=== PATIENT | male | born 1980 | race Caucasian/White ===

== ENCOUNTER 2018-02-17 20:14 | Observation (INO) | payer OTHER ==
--- NOTE | 2018-02-17 20:38 | PDOC ---
History of Present Illness - General History Source: Patient Exam Limitations: No Limitations - History of Present Illness Initial Comments: 02/17/18 21:23 The patient is a 37 year old male with no significant PMH who presents to the emergency department with chronic back pain and left leg pain. The patient reports that he has been experiencing a shooting pain down his left leg for 3 weeks. He states that his left sided pain is worse in his buttocks area and radiates to the heel of his foot. He reports that he also experienced some numbness in his left leg. He reports taking oxycodone, flexeril and anti inflammatory 1 hour prior to arrival to the ED. The patient states that he has been experiencing problems with his bowels secondary to his back pain: he states that it is hard for him to push. Patient reports he has an upcoming appointment with his doctor (Dr Verdugo) in 2 days (MondayFebruary 19) for an epidural spine shot.He denies any chest pain, shortness of breath, headache and dizziness. He denies fever, chills, nausea, vomit, diarrhea, constipation or urinary symptoms. The patient denies any other complaints. <Suman Pena - Last Filed: 02/17/18 21:50> <Adelaida Stovall - Last Filed: 02/18/18 02:20> - General Chief Complaint: Back Pain Stated Complaint: BACK PAIN Time Seen by Provider: 02/17/18 20:17 Past History <Suman Pena - Last Filed: 02/17/18 21:50> - Past Medical History COPD: No Other medical history: BACK PAIN - Immunization History Immunization Up to Date: No - Suicide/Smoking/Psychosocial Hx Smoking History: Never smoked Have you smoked in the past 12 months: No Hx Alcohol Use: Yes (NOT RECENTLY) Drug/Substance Use Hx: No Substance Use Type: None <Adelaida Stovall - Last Filed: 02/18/18 02:20> - Past Medical History Allergies/Adverse Reactions: Allergies Allergy/AdvReac Type Severity Reaction Status Date / Time No Known Allergies Allergy Verified 02/17/18 20:24 Home Medications: Ambulatory Orders Oxycodone HCl/Acetaminophen [Percocet 5-325 mg Tablet -] 1 - 2 tab PO Q6H PRN # 10 tab 02/15/14 Cyclobenzaprine HCl [Flexeril -] 10 mg PO TID PRN 02/17/18 Diclofenac Sodium 50 mg PO BID PRN 02/17/18 Review of Systems - Review of Systems Able to Perform ROS?: Yes Comments:: 02/17/18 21:23 GENERAL/CONSTITUTIONAL: No fever or chills. No weakness. HEAD, EYES, EARS, NOSE AND THROAT: No change in vision. No ear pain or discharge. No sore throat. CARDIOVASCULAR: No chest pain or shortness of breath. RESPIRATORY: No cough, wheezing, or hemoptysis. GASTROINTESTINAL: No nausea, vomiting, diarrhea or constipation. GENITOURINARY: No dysuria, frequency, or change in urination. MUSCULOSKELETAL:(+)back pain, left leg pain. No neck pain. No swelling. SKIN: No rash NEUROLOGIC: No headache, vertigo, loss of consciousness, or change in strength/ sensation. ENDOCRINE: No increased thirst. No abnormal weight change. HEMATOLOGIC/LYMPHATIC: No anemia, easy bleeding, or history of blood clots. ALLERGIC/IMMUNOLOGIC: No hives or skin allergy <Suman Pena - Last Filed: 02/17/18 21:50> *Physical Exam - Vital Signs Last Vital Signs Temp Pulse Resp BP Pulse Ox 98.0 F 98 H 18 142/100 100 02/17/18 20:16 02/17/18 20:16 02/17/18 20:16 02/17/18 20:16 02/17/18 20:16 - Physical Exam Comments: 02/17/18 21:23 GENERAL: Awake, alert, and fully oriented, in no acute distress HEAD: No signs of trauma EYES: PERRLA, EOMI, sclera anicteric, conjunctiva clear ENT: Auricles normal inspection, hearing grossly normal, nares patent, oropharynx clear without exudates. Moist mucosa NECK: Normal ROM, supple, no lymphadenopathy, JVD, or masses LUNGS: Breath sounds equal, clear to auscultation bilaterally. No wheezes, and no crackles HEART: Regular rate and rhythm, normal S1 and S2, no murmurs, rubs or gallops ABDOMEN: Soft, nontender, normoactive bowel sounds. No guarding, no rebound. No masses EXTREMITIES: (+)pain with straight left leg raise, no pain with straight right leg raise. No masses or edema or tenderness of calf or popliteal regions. Normal range of motion, no edema. No clubbing or cyanosis. No cords, erythema, or tenderness BACK:(+) Mild tenderness of midline lower spine , marked tenderness of left buttocks at sciatic notch. NEUROLOGICAL: Cranial nerves II through XII grossly intact. Normal speech, gait deferred. Motor and sensory intact SKIN: Warm, Dry, normal turgor, no rashes or lesions noted. <Suman Pena - Last Filed: 02/17/18 21:50> - Vital Signs Last Vital Signs Temp Pulse Resp BP Pulse Ox 98.0 F 98 H 18 142/100 100 02/17/18 20:16 02/17/18 20:16 02/17/18 20:16 02/17/18 20:16 02/17/18 20:16 <Adelaida Stovall - Last Filed: 02/18/18 02:20> ED Treatment Course - Medications Given in the ED: ED Medications Discontinued Medications Generic Name Dose Route Start Last Admin Trade Name Freq PRN Reason Stop Dose Admin Ketorolac Tromethamine 30 mg 02/17/18 20:50 02/17/18 20:55 Toradol Injection - IVPUSH 02/17/18 20:51 30 mg ONCE ONE Administration <Suman Pena - Last Filed: 02/17/18 21:50> - LABORATORY CBC & Chemistry Diagram: 02/18/18 00:20 02/18/18 00:02 <Adelaida Stovall - Last Filed: 02/18/18 02:20> Progress Note - Progress Note Progress Note: Documentation has been prepared under my direction and personally reviewed by me in its entirety. I attest that this documented accurately reflects all work, treatment, procedures and medical decision making performed by me. <Adelaida Stovall - Last Filed: 02/18/18 02:20> Medical Decision Making - Medical Decision Making 02/17/18 23:46 As noted above, this 37-year-old man without significant past medical history presents by ambulance with 3 week history of lower back pain and left-sided sciatica pain. The patient has previous history of back pain with exacerbation 3 weeks ago of unclear etiology. He was seen by Dr. Verdugo and treated with analgesics/nonsteroidal anti-inflammatory and antispasmodic medication. He is scheduled for epidural injection on Austyn, Kiki 4. He presents with persistent severe pain, especially in the left buttock (sciatic notch) area despite taking medications as prescribed. Patient states that he is unable to ambulate even a few steps without significant pain. He denies groin numbness/ urinary or bowel movement changes (he has had recent difficulty with bowel movements a cause of worsening of pain while bearing down). Exam as noted. Despite 30 mg Toradol IV, 1 mg of Dilaudid IV 2 doses, Valium 5 mg IV, patient still has significant, severe left buttock/leg pain preventing him from ambulating. He failed attempt at ambulation secondary to severe pain. Dr. Bhaena covering Dr.Oh monahan: Message left with service for call back. [facility] service contacted: Case discussed with . Patient will be admitted under observation status for pain control <Adelaida Stovall - Last Filed: 02/18/18 02:20> *DC/Admit/Observation/Transfer - Attestations Scribe Attestion: 02/17/18 21:24 Documentation prepared by Suman Pena, acting as chief medical technologist for Adelaida Stovall MD. <Suman Pena - Last Filed: 02/17/18 21:50> - Discharge Dispostion Decision to Admit order: Yes <Adelaida Stovall - Last Filed: 02/18/18 02:20> Diagnosis at time of Disposition: Intractable low back pain
[2018-02-17] MEDS ORDERED: KETOROLAC TROMETHAMINE 30 MG/1 ML VIAL IVPUSH ONE (20:50)
[2018-02-17] MEDS ORDERED: KETOROLAC TROMETHAMINE 30 MG/1 ML VIAL ONE (20:50)
[2018-02-17] MEDS ORDERED: HYDROmorphone HCL CARPU-JECT 1 MG/1 ML DISP.SYRIN IVPUSH ONE ×2 (21:23→23:13)
[2018-02-17] MEDS ORDERED: HYDROmorphone HCL CARPU-JECT 1 MG/1 ML DISP.SYRIN ONE ×2 (21:26→23:22)
[2018-02-17] MEDS ORDERED: diazePAM CARPU-JECT 10 MG/2 ML DISP.SYRIN IVPUSH ONE (22:25)
[2018-02-18] MEDS ORDERED: METHOCARBAMOL 500 MG TABLET PO ONE (00:04)
[2018-02-18] MEDS ORDERED: ACETAMINOPHEN 325 MG TABLET (FP) PO PRN (00:04)
[2018-02-18 00:28] LABS: HEMOGLOBIN 14.9 GM/dL (11.7-16.9); MCH 27.4 pg (25.7-33.7); MCHC 34.8 g/dl (32.0-35.9); MEAN CELL VOLUME 78.8 fl (80-96); MEAN PLT VOLUME 7.8 fl (7.5-11.1); PLATELET COUNT 236 K/MM3 (134-434); RBC 5.45 M/mm3 (4.00-5.60); WHITE BLOOD COUNT 9.4 K/mm3 (4.0-10.0)
[2018-02-18 00:46] VITALS: BMI 34.1
[2018-02-18 00:55] LABS: ALBUMIN 3.7 g/dl (3.4-5.0); ALK PHOS 38 U/L (45-117); ANION GAP 12 (8-16); BILIRUBIN,TOTAL 0.7 mg/dL (0.2-1.0); BLOOD UREA NITROGEN 15 mg/dL (7-18); CALCIUM 8.8 mg/dL (8.5-10.1); CHLORIDE 103 mmol/L (98-107); CO2 24 mmol/L (21-32); CREATININE 0.8 mg/dL (0.7-1.3); GLUCOSE,RANDOM 79 mg/dL (74-106); POTASSIUM 3.7 mmol/L (3.5-5.1); SGOT/AST 19 U/L (15-37); SGPT/ALT 33 U/L (12-78); SODIUM 139 mmol/L (136-145); TOT PROT 6.3 g/dl (6.4-8.2)
[2018-02-18 01:26] LABS: HEMATOCRIT 43.7 % (35.4-49); HEMOGLOBIN 15.1 GM/dl (11.7-16.9); RBC 5.51 M/mm3 (4.00-5.60); WHITE BLOOD COUNT 9.6 K/mm3 (4.0-10.8)
[2018-02-18 01:27] LABS: LYMPH % 17.4 % (8-40); MCH 27.4 pg (25.7-33.7); MCHC 34.5 g/dl (32.0-35.9); MEAN CELL VOLUME 79.4 fl (80-96); NEUT % 78.4 % (42.8-82.8); PLATELET COUNT 243 K/MM3 (134-434); RDW 13.2 % (11.9-15.9)
[2018-02-18 01:28] LABS: BASO % 0.2 % (0-2.0); EOS % 0.6 % (0-4.5)
[2018-02-18] MEDS ORDERED: morphine CARPU-JECT 2 MG/1 ML DISP.SYRIN IVPUSH PRN (08:07)
[2018-02-18 09:36] LABS: ANION GAP 8 (8-16); BLOOD UREA NITROGEN 15 mg/dl (7-18); CALCIUM 9.3 mg/dl (8.4-10.2); CHLORIDE 102 mmol/L (98-107); CO2 26 mmol/L (22-28); CREATININE 0.8 mg/dl (0.6-1.3); GLUCOSE,RANDOM 79 mg/dl (74-106); POTASSIUM 3.6 mmol/L (3.5-5.1); SODIUM 136 mmol/L (136-145)
[2018-02-18] MEDS: HEPARIN NA (PORCINE) 5,000 UNITS/ML 1ML VIAL SQ SCH ×2 (10:05→22:08)
[2018-02-18] MEDS ORDERED: HYDROmorphone HCL CARPU-JECT 1 MG/1 ML DISP.SYRIN IVPB PRN (13:50)
[2018-02-18] MEDS ORDERED: DOCUSATE SODIUM 100 MG CAPSULE (FP) PO PRN (13:50)
[2018-02-18] MEDS ORDERED: MAGNESIUM HYDROX 2400MG/30ML ORAL SUSPENSION 30 ML CUP PO PRN (13:51)
[2018-02-18] MEDS ORDERED: CYCLOBENZAPRINE HCL 5 MG TABLET PO SCH (14:00)
--- NOTE | 2018-02-18 14:05 | HP ---
CHIEF COMPLAINT: Intractable back pain PCP:Todd HISTORY OF PRESENT ILLNESS: This is a 37 year old male with significant history of chronic back pain. The patient reports that he has been experiencing a shooting pain down his left leg for 3 weeks,pain is worse in his buttocks area and radiates to the heel of his foot for 3 weeks. Pain started 3 weeks ago when he missed the step stepping out of the truck, denies any fall. Pt had an out pt MRI done revealed herniated disc L4-S1.Pt reports seen by pain management Dr. Verdugo,who ordered oxycodone, flexeril and anti inflammatory meds but no relief and also completed two courses of steroid. Pt scheduled to get a steroid injection by Dr. Lorenzana tomorrow. Now pt presents to the ER c/o worsening left buttock pain radiates to left leg, unable to ambulate, denies numbness but reports left heel tingling sensation, c/o constipation, denies B/B incontinence, abdominal pain ,N/V/D, cp, sob,palpitations, BYRD,dizziness or urinary symptoms. Out pt MRI : L3-4 broad disc bulge and central protruding disc herniation, L4-5 - central and left sided disc herniation, mild central canal stenosis, L5 -S1 left sided extruded disc herniation with inferior migration causes compression thecal sac and descending left S1 root. Recent Travel:No PAST MEDICAL HISTORY: PAST SURGICAL HISTORY: Social History: Smoking: None Alcohol: Social drinking, occasional use of beer Drugs: None Family History: None Allergies No Known Allergies Allergy (Verified 02/17/18 20:24) HOME MEDICATIONS: Home Medications Medication Instructions Recorded Oxycodone HCl/Acetaminophen 1 - 2 tab PO Q6H PRN #10 tab 02/15/14 [Percocet 5-325 mg Tablet -] Cyclobenzaprine HCl [Flexeril -] 10 mg PO TID PRN 02/17/18 Diclofenac Sodium 50 mg PO BID PRN 02/17/18 REVIEW OF SYSTEMS CONSTITUTIONAL: Absent: fever, chills, diaphoresis, generalized weakness, malaise, loss of appetite, weight change HEENT: Absent: rhinorrhea, nasal congestion, throat pain, throat swelling, difficulty swallowing, mouth swelling, ear pain, eye pain, visual changes CARDIOVASCULAR: Absent: chest pain, syncope, palpitations, irregular heart rate, lightheadedness , peripheral edema RESPIRATORY: Absent: cough, shortness of breath, dyspnea with exertion, orthopnea, wheezing, stridor, hemoptysis GASTROINTESTINAL: Absent: abdominal pain, abdominal distension, nausea, vomiting, diarrhea, constipation, melena, hematochezia GENITOURINARY: Absent: dysuria, frequency, urgency, hesitancy, hematuria, flank pain, genital pain MUSCULOSKELETAL: left buttocks pain Absent: myalgia, arthralgia, joint swelling, back pain, neck pain SKIN: Absent: rash, itching, pallor HEMATOLOGIC/IMMUNOLOGIC: Absent: easy bleeding, easy bruising, lymphadenopathy, frequent infections ENDOCRINE: Absent: unexplained weight gain, unexplained weight loss, heat intolerance, cold intolerance NEUROLOGIC: Absent: headache, focal weakness or paresthesias, dizziness, unsteady gait, seizure, mental status changes, bladder or bowel incontinence PSYCHIATRIC: Absent: anxiety, depression, suicidal or homicidal ideation, hallucinations. PHYSICAL EXAMINATION Vital Signs - 24 hr 02/17/18 02/17/18 02/18/18 20:16 23:32 00:07 Temperature 98.0 F 98.5 F Pulse Rate 98 H 82 Pulse Rate [ 84 Left] Respiratory 18 18 17 Rate Blood Pressure 142/100 147/86 Blood Pressure 119/78 [Right] O2 Sat by Pulse 100 97 97 Oximetry (%) 02/18/18 02/18/18 04:02 06:25 Temperature 97.8 F Pulse Rate 84 Pulse Rate [ Left] Respiratory 18 Rate Blood Pressure 131/79 Blood Pressure [Right] O2 Sat by Pulse 100 Oximetry (%) GENERAL: Awake, alert, and fully oriented, in no acute distress. HEAD: Normal with no signs of trauma. EYES: Pupils equal, round and reactive to light, extraocular movements intact, sclera anicteric, conjunctiva clear. No lid lag. EARS, NOSE, THROAT: Ears normal, nares patent, oropharynx clear without exudates. Moist mucous membranes. NECK: Normal range of motion, supple without lymphadenopathy, JVD, or masses. LUNGS: Breath sounds equal, clear to auscultation bilaterally. No wheezes, and no crackles. No accessory muscle use. HEART: Regular rate and rhythm, normal S1 and S2 without murmur, rub or gallop. ABDOMEN: Soft, nontender, not distended, normoactive bowel sounds, no guarding, no rebound, no masses. No hepatomegaly or splenomegaly. MUSCULOSKELETAL: Normal range of motion at all joints. No bony deformities or tenderness. No CVA tenderness.Left buttocks pain/tenderness UPPER EXTREMITIES: 2+ pulses, warm, well-perfused. No cyanosis. No clubbing. No peripheral edema. LOWER EXTREMITIES: 2+ pulses, warm, well-perfused. No calf tenderness. No peripheral edema. NEUROLOGICAL: Cranial nerves II-XII intact. Normal speech. Normal gait. PSYCHIATRIC: Cooperative. Good eye contact. Appropriate mood and affect. SKIN: Warm, dry, normal turgor, no rashes or lesions noted, normal capillary refill. Laboratory Results - last 24 hr 02/18/18 02/18/18 02/18/18 00:02 00:02 00:20 WBC 9.6 D 9.4 RBC 5.51 5.45 Hgb 15.1 14.9 Hct 43.7 43.0 MCV 79.4 L 78.8 L MCH 27.4 27.4 MCHC 34.5 34.8 RDW 13.2 13.0 Plt Count 243 236 MPV 8.0 7.8 Neutrophils % 78.4 D Lymphocytes % 17.4 D Monocytes % 7.0 Eosinophils % 0.6 Basophils % 0.2 Sodium 139 Potassium 3.7 Chloride 103 Carbon Dioxide 24 Anion Gap 12 BUN 15 Creatinine 0.8 Creat Clearance w eGFR > 60 Random Glucose 79 Calcium 8.8 Total Bilirubin 0.7 AST 19 ALT 33 Alkaline Phosphatase 38 L Total Protein 6.3 L Albumin 3.7 02/18/18 07:00 WBC RBC Hgb Hct MCV MCH MCHC RDW Plt Count MPV Neutrophils % Lymphocytes % Monocytes % Eosinophils % Basophils % Sodium 136 Potassium 3.6 Chloride 102 Carbon Dioxide 26 Anion Gap 8 BUN 15 D Creatinine 0.8 Creat Clearance w eGFR Random Glucose 79 D Calcium 9.3 Total Bilirubin AST ALT Alkaline Phosphatase Total Protein Albumin ASSESSMENT/PLAN: This is a 37 year old male with significant history of chronic back pain, who presented to the Er c/o worsening left buttock pain radiates to left leg, denies numbness but reports left heel tingling sensation. * Intractable back pain likely due to L4-S1 herniation - MRI reviewed - L4-S1 herniation -follows by ortho Dr. Verdugo, scheduled to have steroid injection for tomorrow -pain consult by Dr. Lorenzana -pain management -PT eval * Constipation - laxatives * VTE prophylaxis : Heparin sq * F/E/N: regular diet Visit type - Emergency Visit Emergency Visit: Yes ED Registration Date: 02/18/18 Care time: The patient presented to the Emergency Department on the above date and was hospitalized for further evaluation of their emergent condition. - New Patient This patient is new to me today: Yes Date on this admission: 02/18/18 - Critical Care Critical Care patient: No Hospitalist Screening - Colonoscopy Questionnaire Colonoscopy Questionnaire: Colonoscopy Questionnaire - Patient: 50 - 75 years old and never had a screening colonoscopy: No History of colon or rectal polyps, or CA: No History of IBD, Crohn's disease or UC: No History of abdominal radiation therapy as a child: No - Relative: 1 with colon or rectal CA, or polyps at age 60 or younger: No Colon or rectal CA diagnosed at age 45 or younger: No Multiple relatives with colon or rectal CA: No - Outcome: Screening Result: Negative Screen
[2018-02-18] MEDS ORDERED: HYDROmorphone HCL CARPU-JECT 2 MG/1 ML DISP.SYRIN ONE (14:22)
[2018-02-18] MEDS ORDERED: predniSONE 20 MG TABLET (UD) PO ONE (14:45)
[2018-02-18] MEDS: POLYETHYLENE GLYCOL 3350 119 GM BTL PO SCH (15:23)
[2018-02-18] MEDS: GABAPENTIN 100 MG CAPSULE (FP) PO SCH ×2 (15:24→22:08)
[2018-02-18] MEDS: HYDROmorphone HCL CARPU-JECT 2 MG/1 ML DISP.SYRIN IVPB PRN ×2 (18:06→22:08)
[2018-02-18] MEDS: CYCLOBENZAPRINE HCL 10 MG TABLET (FP) PO PRN (18:07)
[2018-02-19] MEDS: CYCLOBENZAPRINE HCL 10 MG TABLET (FP) PO PRN ×2 (02:01→21:40)
[2018-02-19] MEDS: HYDROmorphone HCL CARPU-JECT 2 MG/1 ML DISP.SYRIN IVPB PRN (02:01)
--- NOTE | 2018-02-19 07:37 | PN ---
Physical Exam: SUBJECTIVE: Patient seen and examined, patient reports pain to left buttock radiating downward patient denies any saddle anesthesia patient denies any changes about bladder patterns, the patient ambulated a few steps with a walker and physical therapist patient declined to walk any further secondary to pain. OBJECTIVE:Gallito is a 37-year-old male with no significant past mental history. Patient was admitted from the emergency department for intractable lower back pain Vital Signs Period Temp Pulse Resp BP Sys/Osborne Pulse Ox Last 24 Hr 97.8 F-98.5 F 74-88 17-18 132-143/76-95 99-99 GENERAL: The patient is awake, alert, and fully oriented, in no acute distress. HEAD: Normal with no signs of trauma. EYES: PERRL, extraocular movements intact, sclera anicteric, conjunctiva clear. No ptosis. ENT: Ears normal, nares patent, oropharynx clear without exudates, moist mucous membranes. NECK: Trachea midline, full range of motion, supple. LUNGS: Breath sounds equal, clear to auscultation bilaterally, no wheezes, no crackles, no accessory muscle use. HEART: Regular rate and rhythm, S1, S2 without murmur, rub or gallop. ABDOMEN: Soft, nontender, nondistended, normoactive bowel sounds, no guarding, no rebound, no hepatosplenomegaly, no masses. EXTREMITIES: 2+ pulses, warm, well-perfused, no edema. MS: positive SLRto the left lower extremity at 45, point tenderness noted to the left sciatic notch. NEUROLOGICAL: Cranial nerves II through XII grossly intact. Normal speech, gait not observed. PSYCH: Normal mood, normal affect. SKIN: Warm, dry, normal turgor, no rashes or lesions noted Laboratory Results - last 24 hr 02/18/18 07:00 Sodium 136 Potassium 3.6 Chloride 102 Carbon Dioxide 26 Anion Gap 8 BUN 15 D Creatinine 0.8 Random Glucose 79 D Calcium 9.3 Active Medications Generic Name Dose Route Start Last Admin Trade Name Freq PRN Reason Stop Dose Admin Cyclobenzaprine HCl 10 mg 02/18/18 13:48 02/19/18 02:01 Flexeril - PO 10 mg TID PRN Administration BACK PAIN Docusate Sodium 100 mg 02/18/18 13:50 02/18/18 18:06 Colace - PO 100 mg BID PRN Administration CONSTIPATION Gabapentin 200 mg 02/18/18 14:45 02/18/18 22:08 Neurontin - PO 200 mg BID OLIVER Administration Heparin Sodium (Porcine) 5,000 unit 02/18/18 10:00 02/18/18 22:08 Heparin - SQ 5,000 unit BID OLIVER Administration Hydromorphone HCl 0.5 mg 02/18/18 14:47 02/19/18 02:01 Dilaudid Injection - IVPB 0.5 mg Q4H PRN Administration PAIN LEVEL 7 - 10 Magnesium Hydroxide 30 ml 02/18/18 13:51 Milk Of Magnesia - PO PRN PRN CONSTIPATION Oxycodone/Acetaminophen 2 combo 02/18/18 13:57 02/19/18 06:20 Percocet 5/325 - PO 2 combo Q6H PRN Administration PAIN LEVEL 4 - 6 Polyethylene Glycol 17 gm 02/18/18 14:00 02/18/18 15:23 Miralax (For Daily Use) - PO 17 grams DAILY OLIVER Administration Imaging Outpatient MRI : L3-4 broad disc bulge and central protruding disc herniation, L4-5- central and left sided disc herniation, mild central canal stenosis, L5 - S1 left sided extruded disc herniation with inferior migration causes compression thecal sac and descending left S1 root. ASSESSMENT/PLAN: 1) MS Intractable back pain - likely secondary to lumbar disc herniation L4-S1, physical therapist attempted to ambulate patient today patient is declining to ambulate secondary to the pain, appreciated input of pain management Dr. Boss. - Dr Verdugo consulted and following - continue prednisone taper, Percocet, Neurontin, Flexeril, and Dilaudid 2) GI Constipation - laxatives * VTE prophylaxis : Heparin sq * F/E/N: regular diet Visit type - Emergency Visit Emergency Visit: Yes ED Registration Date: 02/18/18 Care time: The patient presented to the Emergency Department on the above date and was hospitalized for further evaluation of their emergent condition. - New Patient This patient is new to me today: Yes Date on this admission: 02/19/18 - Critical Care Critical Care patient: No - Discharge Referral Referred to [facility] No
[2018-02-19] MEDS ORDERED: HYDROmorphone HCL CARPU-JECT 2 MG/1 ML DISP.SYRIN IVPB PRN (08:48)
[2018-02-19] MEDS: HYDROmorphone HCL 0.5 MG/0.5 ML SYRINGE IVPB PRN ×2 (09:16→15:35)
[2018-02-19] MEDS: GABAPENTIN 100 MG CAPSULE (FP) PO SCH ×2 (09:16→21:39)
[2018-02-19] MEDS: HEPARIN NA (PORCINE) 5,000 UNITS/ML 1ML VIAL SQ SCH ×2 (09:17→21:39)
[2018-02-19] MEDS: POLYETHYLENE GLYCOL 3350 119 GM BTL PO SCH (09:24)
[2018-02-19] MEDS ORDERED: predniSONE 20 MG TABLET (UD) PO ONE (14:15)
[2018-02-19] MEDS: PANTOPRAZOLE 40 MG TABLET (FP) PO SCH (20:02)
[2018-02-19 20:28] LABS: URINE APPEARANCE Clear; URINE BILIRUBIN Negative (NEGATIVE); URINE BLOOD Negative (NEGATIVE); URINE COLOR YELLOW; URINE GLUCOSE (UA) Negative (NEGATIVE); URINE KETONE 1+ (NEGATIVE); URINE LEUK ESTERASE Negative (NEGATIVE); URINE NITRITE Negative (NEGATIVE); URINE PROTEIN Negative (NEGATIVE); URINE UROBILINOGEN 0.2 (0.2-1.0)
--- NOTE | 2018-02-20 06:44 | CONSULT ---
Consult Consult Specialty:: pain medicine Referred by:: jose c Reason for Consultation:: back pain - History of Present Illness Chief Complaint: back pain History of Present Illness: 37 year old male with significant history of chronic back pain. The patient reports that he has been experiencing a shooting pain down his left leg for 3 weeks,pain is worse in his buttocks area and radiates to the heel of his foot for 3 weeks. Pain started 3 weeks ago when he missed the step stepping out of the truck, denies any fall. Pt had an out pt MRI done revealed herniated disc L4-S1.Pt reports seen by pain management Dr. Verdugo,who ordered oxycodone, flexeril and anti inflammatory meds but no relief and also completed two courses of steroid. Pt scheduled to get a steroid injection by Dr. Boss tomorrow. Now pt presents to the ER c/o worsening left buttock pain radiates to left leg, unable to ambulate, denies numbness but reports left heel tingling sensation, c/o constipation, denies B/B incontinence, abdominal pain ,N/V/D, cp, sob,palpitations, BYRD,dizziness or urinary symptoms. Out pt MRI : L3-4 broad disc bulge and central protruding disc herniation, L4-5 - central and left sided disc herniation, mild central canal stenosis, L5 -S1 left sided extruded disc herniation with inferior migration causes compression thecal sac and descending left S1 root. Currently he reports continued severe pain in his back and leg despite on numerous pain meds. He reports difficulty to walk or stand. PAST MEDICAL HISTORY: PAST SURGICAL HISTORY: Social History: Smoking: None Alcohol: Social drinking, occasional use of beer Drugs: None - Alcohol/Substance Use Hx Alcohol Use: Yes (NOT RECENTLY) - Smoking History Smoking history: Never smoked Have you smoked in the past 12 months: No Home Medications - Allergies Allergies/Adverse Reactions: Allergies Allergy/AdvReac Type Severity Reaction Status Date / Time No Known Allergies Allergy Verified 02/17/18 20:24 - Home Medications Home Medications: Ambulatory Orders Oxycodone HCl/Acetaminophen [Percocet 5-325 mg Tablet -] 1 - 2 tab PO Q6H PRN # 10 tab 02/15/14 Cyclobenzaprine HCl [Flexeril -] 10 mg PO TID PRN 02/17/18 Diclofenac Sodium 50 mg PO BID PRN 02/17/18 Physical Exam Vital Signs: Vital Signs Temperature 97.6 F 02/20/18 06:36 Pulse Rate 81 02/20/18 06:36 Respiratory Rate 18 02/20/18 06:36 Blood Pressure 145/81 02/20/18 06:36 O2 Sat by Pulse Oximetry (%) 98 02/20/18 06:36 Musculoskeletal: Yes: Back Pain (severe pain in back and left leg positive SLR on left at 20 deg) Labs: CBC, BMP 02/18/18 00:20 02/18/18 07:00 Assessment/Plan Lumbar radiculopathy secondary to large disc extrusion at L5S1 1. The patient can trial an epidural steroid injection. I will try to perform it first thing in the morning on monday if the OR will allow me. Otherwise the patient may need to see me as an outpatient. 2. Can continue current regimen with gabapentin, muscle relaxants and opioids prn 3. Will need to hold heparin- last dose this morning if OR confirmed for tomorrow 4. If no relief in a few days after the DERRELL the patient most likely will need spine surgery. call with any questions cell [phone] off [phone]
[2018-02-20 08:56] LABS: INR 1.24 (0.82-1.09); PROTHROMBIN TIME (PATIENT) 13.8 SEC (10.2-13.0)
[2018-02-20 08:58] LABS: ALBUMIN 4.2 g/dl (3.5-5.0); ALK PHOS 36 U/L (32-92); ANION GAP 6 (8-16); BILIRUBIN,TOTAL 0.9 mg/dl (0.2-1.0); BLOOD UREA NITROGEN 11 mg/dl (7-18); CALCIUM 9.7 mg/dl (8.4-10.2); CHLORIDE 103 mmol/L (98-107); CO2 27 mmol/L (22-28); CREATININE 0.8 mg/dl (0.6-1.3); GLUCOSE,RANDOM 109 mg/dl (74-106); MAGNESIUM 1.9 mg/dL (1.8-2.4); PHOSPHOROUS 4.2 mg/dl (2.5-4.6); POTASSIUM 4.5 mmol/L (3.5-5.1); SGOT/AST 25 U/L (10-42); SGPT/ALT 46 U/L (10-40); SODIUM 136 mmol/L (136-145); TOT PROT 6.7 g/dl (6.4-8.3)
[2018-02-20 09:03] LABS: BASO % 0.1 % (0-2.0); EOS % 0.1 % (0-4.5); HEMATOCRIT 48.1 % (35.4-49); HEMOGLOBIN 16.7 GM/dl (11.7-16.9); LYMPH % 15.5 % (8-40); MCHC 34.7 g/dl (32.0-35.9); MEAN CELL VOLUME 80.7 fl (80-96); MEAN PLT VOLUME 7.8 fl (7.5-11.1); MONO % 5.9 % (3.8-10.2); NEUT % 78.4 % (42.8-82.8); PLATELET COUNT 273 K/MM3 (134-434); RBC 5.96 M/mm3 (4.00-5.60); RDW 11.7 % (11.9-15.9); WHITE BLOOD COUNT 7.7 K/mm3 (4.0-10.8)
[2018-02-20] MEDS: POLYETHYLENE GLYCOL 3350 119 GM BTL PO SCH (10:25)
[2018-02-20] MEDS: GABAPENTIN 100 MG CAPSULE (FP) PO SCH ×2 (10:25→21:21)
[2018-02-20] MEDS: HEPARIN NA (PORCINE) 5,000 UNITS/ML 1ML VIAL SQ SCH (10:25)
[2018-02-20] MEDS: PANTOPRAZOLE 40 MG TABLET (FP) PO SCH (10:25)
[2018-02-20] MEDS: HYDROmorphone HCL 0.5 MG/0.5 ML SYRINGE IVPB PRN (10:42)
--- NOTE | 2018-02-20 13:21 | PN ---
Physical Exam: SUBJECTIVE: Patient seen and examined, reports ongoing back pain, pending OR tommorow OBJECTIVE: patient is a 37-year-old male with no significant past mental history. Patient was admitted from the emergency department for intractable lower back pain Vital Signs Period Temp Pulse Resp BP Sys/Osborne Pulse Ox Last 24 Hr 97.6 F-99.2 F 78-92 16-19 125-145/71-81 96-98 GENERAL: The patient is awake, alert, and fully oriented, in no acute distress. HEAD: Normal with no signs of trauma. EYES: PERRL, extraocular movements intact, sclera anicteric, conjunctiva clear. No ptosis. ENT: Ears normal, nares patent, oropharynx clear without exudates, moist mucous membranes. NECK: Trachea midline, full range of motion, supple. LUNGS: Breath sounds equal, clear to auscultation bilaterally, no wheezes, no crackles, no accessory muscle use. HEART: Regular rate and rhythm, S1, S2 without murmur, rub or gallop. ABDOMEN: Soft, nontender, nondistended, normoactive bowel sounds, no guarding, no rebound, no hepatosplenomegaly, no masses. EXTREMITIES: 2+ pulses, warm, well-perfused, no edema. MS: positive SLRto the left lower extremity at 45, point tenderness noted to the left sciatic notch. NEUROLOGICAL: Cranial nerves II through XII grossly intact. Normal speech, gait not observed. PSYCH: Normal mood, normal affect. SKIN: Warm, dry, normal turgor, no rashes or lesions noted Laboratory Results - last 24 hr 02/19/18 02/20/18 02/20/18 20:10 08:16 08:16 WBC 7.7 RBC 5.96 H Hgb 16.7 D Hct 48.1 MCV 80.7 MCH 28.0 MCHC 34.7 RDW 11.7 L D Plt Count 273 MPV 7.8 Absolute Neuts (auto) 6.0 Neutrophils % 78.4 Lymphocytes % 15.5 Monocytes % 5.9 Eosinophils % 0.1 D Basophils % 0.1 PT with INR 13.8 H INR 1.24 H Sodium Potassium Chloride Carbon Dioxide Anion Gap BUN Creatinine Creat Clearance w eGFR Random Glucose Calcium Phosphorus Magnesium Total Bilirubin AST ALT Alkaline Phosphatase Total Protein Albumin Urine Color Yellow Urine Appearance Clear Urine pH 5.0 Ur Specific Pep 1.010 Urine Protein Negative Urine Glucose (UA) Negative Urine Ketones 1+ H Urine Blood Negative Urine Nitrite Negative Urine Bilirubin Negative Urine Urobilinogen 0.2 Ur Leukocyte Esterase Negative 02/20/18 08:16 WBC RBC Hgb Hct MCV MCH MCHC RDW Plt Count MPV Absolute Neuts (auto) Neutrophils % Lymphocytes % Monocytes % Eosinophils % Basophils % PT with INR INR Sodium 136 Potassium 4.5 D Chloride 103 Carbon Dioxide 27 Anion Gap 6 L BUN 11 D Creatinine 0.8 Creat Clearance w eGFR > 60 Random Glucose 109 H D Calcium 9.7 Phosphorus 4.2 Magnesium 1.9 Total Bilirubin 0.9 AST 25 D ALT 46 H D Alkaline Phosphatase 36 Total Protein 6.7 Albumin 4.2 Urine Color Urine Appearance Urine pH Ur Specific Pep Urine Protein Urine Glucose (UA) Urine Ketones Urine Blood Urine Nitrite Urine Bilirubin Urine Urobilinogen Ur Leukocyte Esterase Active Medications Generic Name Dose Route Start Last Admin Trade Name Freq PRN Reason Stop Dose Admin Cyclobenzaprine HCl 10 mg 02/18/18 13:48 02/19/18 21:40 Flexeril - PO 10 mg TID PRN Administration BACK PAIN Docusate Sodium 100 mg 02/18/18 13:50 02/18/18 18:06 Colace - PO 100 mg BID PRN Administration CONSTIPATION Gabapentin 200 mg 02/18/18 14:45 02/20/18 10:25 Neurontin - PO 200 mg BID OLIVER Administration Heparin Sodium (Porcine) 5,000 unit 02/18/18 10:00 02/20/18 10:25 Heparin - SQ 5,000 unit BID OLIVER Administration Hydromorphone HCl 0.5 mg 02/19/18 08:56 02/20/18 10:42 Dilaudid IVPB 0.5 mg Q4H PRN Administration PAIN LEVEL 7 - 10 Magnesium Hydroxide 30 ml 02/18/18 13:51 Milk Of Magnesia - PO PRN PRN CONSTIPATION Oxycodone/Acetaminophen 2 combo 02/18/18 13:57 02/20/18 07:07 Percocet 5/325 - PO 2 combo Q6H PRN Administration PAIN LEVEL 4 - 6 Pantoprazole Sodium 40 mg 02/19/18 15:30 02/20/18 10:25 Protonix - PO 40 mg DAILY OLIVER Administration Polyethylene Glycol 17 gm 02/18/18 14:00 02/20/18 10:25 Miralax (For Daily Use) - PO 17 grams DAILY OLIVER Administration Imaging Outpatient MRI : L3-4 broad disc bulge and central protruding disc herniation, L4-5- central and left sided disc herniation, mild central canal stenosis, L5 - S1 left sided extruded disc herniation with inferior migration causes compression thecal sac and descending left S1 root. ASSESSMENT/PLAN: 1) MS Intractable back pain - pending OR tomm at 7 AM for epidural - Dr Verdugo consulted and following - continue prednisone taper, Percocet, Neurontin, Flexeril, and Dilaudid 2) GI Constipation - laxatives * VTE prophylaxis : Heparin sq * F/E/N: regular diet nothing by mouth after midnight Visit type - Emergency Visit Emergency Visit: Yes ED Registration Date: 02/18/18 Care time: The patient presented to the Emergency Department on the above date and was hospitalized for further evaluation of their emergent condition. - New Patient This patient is new to me today: No - Critical Care Critical Care patient: No - Discharge Referral Referred to [facility] Med P.C.: No
[2018-02-20] MEDS ORDERED: predniSONE 20 MG TABLET (UD) PO ONE (14:00)
[2018-02-20] MEDS: CYCLOBENZAPRINE HCL 10 MG TABLET (FP) PO PRN (22:40)
[2018-02-21] MEDS ORDERED: DEXTROSE 5%-NORMAL SALINE 1,000 ML IV SCH
[2018-02-21] MEDS ORDERED: TRIAMCINOLONE ACET 40MG/1ML VIAL ONE (07:18)
[2018-02-21] MEDS ORDERED: BUPIVACAINE HCL/PF 2.5 MG/ML - 30 ML VIAL IJ ONE (07:18)
[2018-02-21] MEDS ORDERED: MIDAZOLAM HCL 2 MG/2 ML SINGLE DOSE VIAL ONE ×2 (07:29→07:41)
[2018-02-21] MEDS: HYDROmorphone HCL 0.5 MG/0.5 ML SYRINGE IVPB PRN (08:10)
[2018-02-21] MEDS ORDERED: HYDROmorphone HCL 0.5 MG/0.5 ML SYRINGE ONE (08:12)
--- NOTE | 2018-02-21 08:38 | PROC ---
Procedure Note Procedure: HOLD HEPARIN FOR 24hrs OPERATIVE REPORT Surgeon: Mark Boss MD Preoperative Diagnosis: Lumbar radiculopathy Postoperative Diagnosis: Same Anesthesia: IVCS Procedure: Lumbar Epidural steroid injection l5s1 Level Assessment: The patient presents to the [facility] today with the same complaints as previously noted. The condition remains unchanged. The procedure was explained to the patient. The risks and benefits were explained including but not limited to bleeding, infection, nerve injury, headaches, and worsening of pain. All questions have been answered and informed consent granted. Technique: The patient was placed in the prone position. A pillow was placed under the abdomen to lessen lumbar lordosis. The patient was prepped and draped in sterile fashion. Under fluoroscopy, an AP view was obtained of the lumbar spine and end plates of the levels above were aligned. Through a 3cc 1% lidocaine wheal, 3.5" 20G Touhy needle was advanced using a gun barrel view towards the epidural space via a translaminar approach. A loss of resistance technique to air was utilized. After negative aspiration of blood or CSF, 2 cc of Omnipaque contrast was injected under fluoroscopy to confirm needle placement.. Epidurogram: The contrast Omnipaque 240 was injected that evenly spread from level L5S1 level with posterior-anterior dye spread bilaterally at levels of l5s1. There appeared to be a moderate degree foraminal stenosis and with disc protrusion at the level of l5s1. The intervertebral disc height at the level of l5s1 was slightly less than normal and intervertebral disc height at the level of l5s1 was well maintained. The neural foramen appeared to be patent. Conclusion: Good epidural dye containment from l5s1 with intervertebral disc protrusion at the level ofl5s1, maintaining less than normal intervertebral disc height at level l5s1. foraminalstenosis noted at the level of L4 through S1. Hard copies of the images are on file.. Then 80mg Kenalog with 3cc PFNS was injected into the epidural space. A total of 2 cc of 0.25% Bupivicaine was injected as needle removed. The patient was hemodynamically stable, and neuromuscularly intact. The patient remained alert and responsive throughout the procedure. The patient tolerated the procedure well without complication. The patient was observed in the recovery room and then was discharged to the floor in stable condition. Instructions were given to the patient for follow up. Mark Boss M.D. Board Certified [employer].
[2018-02-21] MEDS: PANTOPRAZOLE 40 MG TABLET (FP) PO SCH (10:11)
[2018-02-21] MEDS: GABAPENTIN 100 MG CAPSULE (FP) PO SCH (10:11)
[2018-02-21] MEDS: POLYETHYLENE GLYCOL 3350 119 GM BTL PO SCH (10:12)
--- NOTE | 2018-02-21 13:45 | DS ---
Physical Exam: SUBJECTIVE: Patient seen and examined, Patient is status post lumbar steroid injection. Reports feeling relief ambulated at bedside with the assistance of walker. OBJECTIVE:This is a 37 year old male with significant history of chronic back pain. The patient reports that he has been experiencing a shooting pain down his left leg for 3 weeks,pain is worse in his buttocks area and radiates to the heel of his foot for 3 weeks. Pain started 3 weeks ago when he missed the step stepping out of the truck, denies any fall. Pt had an out pt MRI done revealed herniated disc L4-S1.Pt reports seen by pain management Dr. Verdugo,who ordered oxycodone, flexeril and anti inflammatory meds but no relief and also completed two courses of steroid. Pt scheduled to get a steroid injection by Dr. Lorenzana tomorrow. Now pt presents to the ER c/o worsening left buttock pain radiates to left leg, unable to ambulate, denies numbness but reports left heel tingling sensation, c/o constipation, denies B/B incontinence, abdominal pain ,N/V/D, cp, sob,palpitations, BYRD,dizziness or urinary symptoms. Out pt MRI : L3-4 broad disc bulge and central protruding disc herniation, L4-5 - central and left sided disc herniation, mild central canal stenosis, L5 -S1 left sided extruded disc herniation with inferior migration causes compression thecal sac and descending left S1 root. Vital Signs Period Temp Pulse Resp BP Sys/Osborne Pulse Ox Last 24 Hr 97.7 F-98.8 F 71-90 16-20 122-144/80-96 96-100 PHYSICAL EXAM GENERAL: The patient is awake, alert, and fully oriented, in no acute distress. HEAD: Normal with no signs of trauma. EYES: PERRL, extraocular movements intact, sclera anicteric, conjunctiva clear. ENT: Ears normal, nares patent, oropharynx clear without exudates, moist mucous membranes. NECK: Trachea midline, full range of motion, supple. LUNGS: Breath sounds equal, clear to auscultation bilaterally, no wheezes, no crackles, no accessory muscle use. HEART: Regular rate and rhythm, S1, S2 without murmur, rub or gallop. ABDOMEN: Soft, nontender, nondistended, normoactive bowel sounds, no guarding, no rebound, no hepatosplenomegaly, no masses. EXTREMITIES: 2+ pulses, warm, well-perfused, no edema. NEUROLOGICAL: Cranial nerves II through XII grossly intact. Normal speech, gait not observed. PSYCH: Normal mood, normal affect. SKIN: Warm, dry, normal turgor, no rashes or lesions noted. LABS CBC WBC 7.7 K/mm3 (4.0-10.8) 02/20/18 08:16 RBC 5.96 M/mm3 (4.00-5.60) H 02/20/18 08:16 Hgb 16.7 GM/dl (11.7-16.9) D 02/20/18 08:16 Hct 48.1 % (35.4-49) 02/20/18 08:16 MCV 80.7 fl (80-96) 02/20/18 08:16 MCH 28.0 pg (25.7-33.7) 02/20/18 08:16 MCHC 34.7 g/dl (32.0-35.9) 02/20/18 08:16 RDW 11.7 % (11.9-15.9) L D 02/20/18 08:16 Plt Count 273 K/MM3 (134-434) 02/20/18 08:16 MPV 7.8 fl (7.5-11.1) 02/20/18 08:16 Absolute Neuts (auto) 6.0 # 02/20/18 08:16 Neutrophils % 78.4 % (42.8-82.8) 02/20/18 08:16 Lymphocytes % 15.5 % (8-40) 02/20/18 08:16 Monocytes % 5.9 % (3.8-10.2) 02/20/18 08:16 Eosinophils % 0.1 % (0-4.5) D 02/20/18 08:16 Basophils % 0.1 % (0-2.0) 02/20/18 08:16 CMP Sodium 136 mmol/L (136-145) 02/20/18 08:16 Potassium 4.5 mmol/L (3.5-5.1) D 02/20/18 08:16 Chloride 103 mmol/L (98-107) 02/20/18 08:16 Carbon Dioxide 27 mmol/L (22-28) 02/20/18 08:16 Anion Gap 6 (8-16) L 02/20/18 08:16 BUN 11 mg/dl (7-18) D 02/20/18 08:16 Creatinine 0.8 mg/dl (0.6-1.3) 02/20/18 08:16 Creat Clearance w eGFR > 60 (>60) 02/20/18 08:16 Random Glucose 109 mg/dl (74-106) H D 02/20/18 08:16 Calcium 9.7 mg/dl (8.4-10.2) 02/20/18 08:16 Phosphorus 4.2 mg/dl (2.5-4.6) 02/20/18 08:16 Magnesium 1.9 mg/dL (1.8-2.4) 02/20/18 08:16 Total Bilirubin 0.9 mg/dl (0.2-1.0) 02/20/18 08:16 AST 25 U/L (10-42) D 02/20/18 08:16 ALT 46 U/L (10-40) H D 02/20/18 08:16 Alkaline Phosphatase 36 U/L (32-92) 02/20/18 08:16 Total Protein 6.7 g/dl (6.4-8.3) 02/20/18 08:16 Albumin 4.2 g/dl (3.5-5.0) 02/20/18 08:16 HOSPITAL COURSE: 1) Intractable back pain, patient was evaluated by pain management physician Dr. Kenyon Dyson, epidural steroid injection was placed on February 21, 2018. patient ambulated with physical therapy, recommends rolling walker. Pain was managed with narcotic and nonnarcotic medications. PLAN - discharge home with VNS - strict follow-up with pain management, Dr Boss within 1 week - Return precautions reviewed I numbness to groin inability to urinate or move bowels patient must return to the emergency department patient verbalizes understanding Date of Admission:02/18/18 Date of Discharge: 02/21/18 Minutes to complete discharge: 45 Discharge Summary Reason For Visit: INTRACTABLE LOW BACK PAIN Current Active Problems Intractable low back pain (Acute) Condition: Improved - Instructions Diet, Activity, Other Instructions: continue high fiber diet Please ambulate frequently throughout the day Continue Tylenol for minimal pain and oxycodone for severe pain Flexeril as needed for muscle spasms Please follow up with pain management Dr Boss within 1 week If P worsens or if any numbness develops to groin or you have any changes to bowel or bladder patterns please return to emergency department Referrals: Mark Boss MD [Staff Physician] - 1 Week Ortega Brooks MD [Staff Physician] - 3 Weeks Tyrone Verdugo MD [Primary Care Provider] - Lake Le MD [Staff Physician] - 3 Weeks Disposition: VNS/HOME HEALTH CARE - Home Medications Comprehensive Discharge Medication List: Ambulatory Orders Oxycodone HCl/Acetaminophen [Percocet 5-325 mg Tablet -] 1 - 2 tab PO Q6H PRN # 10 tab 02/15/14 Cyclobenzaprine HCl [Flexeril -] 10 mg PO TID PRN 02/17/18 Diclofenac Sodium 50 mg PO BID PRN 02/17/18 This patient is new to me today: No Emergency Visit: Yes ED Registration Date: 02/18/18 Care time: The patient presented to the Emergency Department on the above date and was hospitalized for further evaluation of their emergent condition. Critical Care patient: No - Discharge Referral Referred to [facility] No
[2018-02-21 14:16] VITALS: BP 126/72; PULSE 80; TEMP 98.6
== END 2018-02-21 16:10 | disposition home health service (06) ==
LOC: FER 20:14 → FM/S 02-18 00:07
PROVIDERS: ADMIT Internal Medicine; ATTEND Nurse Practitioner Family
PROC: 3E0R33Z Introduction of Anti-inflammatory into Spinal Canal, Percutaneous Approach (ICD-10-PCS; principal; 2018-02-18)
PROC: 3E0R3BZ Introduction of Anesthetic Agent into Spinal Canal, Percutaneous Approach (ICD-10-PCS; 2018-02-18)
PROC: B01BZZZ Fluoroscopy of Spinal Cord (ICD-10-PCS; 2018-02-18)
PROC: 3E033NZ Introduction of Analgesics, Hypnotics, Sedatives into Peripheral Vein, Percutaneous Approach (ICD-10-PCS; 2018-02-18)
PROC: 3E0333Z Introduction of Anti-inflammatory into Peripheral Vein, Percutaneous Approach (ICD-10-PCS; 2018-02-18)
PROC: 3E033GC Introduction of Other Therapeutic Substance into Peripheral Vein, Percutaneous Approach (ICD-10-PCS; 2018-02-18)
PROC: 3E0337Z Introduction of Electrolytic and Water Balance Substance into Peripheral Vein, Percutaneous Approach (ICD-10-PCS; 2018-02-18)
PROC: 3E013GC Introduction of Other Therapeutic Substance into Subcutaneous Tissue, Percutaneous Approach (ICD-10-PCS; 2018-02-18)
DX: M51.17 Intervertebral disc disorders with radiculopathy, lumbosacral region (principal); M54.5 Low back pain; K59.00 Constipation, unspecified; G89.29 Other chronic pain
CPT/HCPCS: 36415; 72100-TC-FY; 80048; 80053; 81003; 83735; 84100; 85025; 85027; 85610; 94760; 96374; 96375; 96376; 97116-GP; 97161-GP; 99282-25; G0378; J1644

== ENCOUNTER 2018-03-01 12:17 | Emergency (ER) | payer OTHER ==
--- NOTE | 2018-03-01 12:25 | PDOC ---
History of Present Illness - General Chief Complaint: Back Pain Stated Complaint: BACK PAIN Time Seen by Provider: 03/01/18 12:24 - History of Present Illness Initial Comments: 03/01/18 14:54 Chief complaint: Constipation History of present illness: Unable to defecate for approximately 3 weeks. Probably the result of taking narcotics for back pain. Has tried stool softeners , laxatives, magnesium citrate, and MiraLAX. Review of systems: No nausea or vomiting. No abdominal pain, but discomfort in the rectal area due to stool in the ampulla. No chest pain, shortness of breath , dysuria, frequency, urgency, hesitancy, hematuria, incontinence, or retention. Remainder systems reviewed and found to be negative Past medical history: Back injury, chronic back pain, radiculopathy, herniated disks. Otherwise negative. Taking oxycodone Social history: Relatively immobile due to back pain. No tobacco or street drugs. No alcohol Family history: Reviewed and noncontributory Physical exam: Alert and oriented well-developed well-nourished, mildly uncomfortable due to constipation. But no significant distress Afebrile, vital signs normal Abdomen nondistended. Bowel sounds normal. Soft without mass tenderness organomegaly. Rectal exam: Stool impaction is present. Stool is dark brown in color. Could not be loosened with digital manipulation. No other masses or tenderness. No saddle anesthesia, sensation intact, good sphincter tone, good cremasteric LS spine: No point tenderness or deformity. No inflammatory changes. Straight leg raising positive on the right side. Numbness and tingling described in the L5-S1 distribution but no demonstrable sensory or motor deficits. Impression: Herniated lumbar disc with radiculopathy, low back pain, constipation secondary to narcotic use Plan: Digital impaction was attempted but unsuccessful. Magnesium citrate was administered. We will attempt an enema if the patient is able to cooperate. Past History - Past Medical History Allergies/Adverse Reactions: Allergies Allergy/AdvReac Type Severity Reaction Status Date / Time No Known Allergies Allergy Verified 03/01/18 12:35 Home Medications: Ambulatory Orders Cyclobenzaprine HCl [Flexeril -] 10 mg PO TID PRN 02/17/18 Docusate Sodium [Colace -] 100 mg PO BID PRN #60 capsule 02/21/18 Gabapentin [Neurontin -] 200 mg PO BID #60 capsule 02/21/18 Oxycodone HCl 10 mg PO Q6H PRN #28 tablet MDD 4 02/21/18 Polyethylene Glycol 3350 [Miralax 119 gm Btl -] 17 gm PO DAILY bottle 02/21/18 Walker [Ultra-Light Rollator] 1 each MC DAILY #1 each 02/21/18 COPD: No - Immunization History Immunization Up to Date: No - Suicide/Smoking/Psychosocial Hx Smoking History: Never smoked Have you smoked in the past 12 months: No Hx Alcohol Use: Yes (NOT RECENTLY) Drug/Substance Use Hx: No Substance Use Type: None Medical Decision Making - Medical Decision Making 03/01/18 15:55 Abdomen is soft and nontender. Patient is passing gas, but no stool. No sign of obstruction. As noted, manual disimpaction was not successful. Magnesium citrate was administered, and an enema was attempted, still with no results Repeat digital impaction was refused by the patient. He was given GoLYTELY to use at home and instructed to return to the emergency room if no results. Fully ambulatory and in no pain upon discharge to follow-up as directed *DC/Admit/Observation/Transfer Diagnosis at time of Disposition: Fecal impaction in rectum - Discharge Dispostion Disposition: HOME Condition at time of disposition: Stable Decision to Admit order: No - Referrals Referrals: Ortega Brooks MD [Primary Care Provider] - 24 hours - Patient Instructions Printed Discharge Instructions: DI for Fecal Impaction - Post Discharge Activity
[2018-03-01 12:49] VITALS: BP 134/93; PULSE 104; TEMP 98.8; BMI 34.1
[2018-03-01] MEDS ORDERED: MAGNESIUM CITRATE 300 ML BOTTLE PO ONE (13:27)
[2018-03-01] MEDS ORDERED: MAGNESIUM CITRATE 300 ML BOTTLE ONE (13:27)
[2018-03-01] MEDS ORDERED: LORazepam 0.5 MG TABLET ONE (13:46)
[2018-03-01] MEDS ORDERED: LORazepam 1 MG TABLET PO ONE (13:46)
[2018-03-01] MEDS ORDERED: PEG3350/SOD SULF,BICARB,CL/KCL 4,000 ML SOLN.RECON PO ONE (15:45)
== END 2018-03-01 15:45 | disposition home or self-care (01) ==
LOC: FER 12:17
DX: K56.41 Fecal impaction (principal); G89.29 Other chronic pain
CPT/HCPCS: 99283-25

== ENCOUNTER 2018-03-08 06:10 | Day surgery (SDC) | payer OTHER ==
[2018-03-06 10:44] VITALS: BMI 34.3
[~2018-03-08 06:10] MED LIST: LIDOCAINE HCL 1%, 10 MG/ML (50 mL VIAL) IJ ONE
[2018-03-08] MEDS ORDERED: LIDOCAINE 1%/EPI 1:100000 (20 ML MULTI DOSE VIAL) ONE (07:09)
[2018-03-08] MEDS ORDERED: THROMBIN (BOVINE) 5,000 UNIT VIAL TP ONE ×2 (07:09→10:02)
[2018-03-08] MEDS ORDERED: methylPREDNISolone ACET (DEPO) 40 MG/1 ML VIAL ONE (07:09)
--- NOTE | 2018-03-08 07:13 | HP ---
History & Physical Update - History History: No Change - Physical Physical: No Change - Assessment Assessment: No Change - Plan Plan: No Change (Initial h&p is located in his paper chart. No new complaints or medications. Here tody for elective L5/S1 lqminectomy possible discectomy)
[2018-03-08] MEDS ORDERED: GABAPENTIN 300 MG CAPSULE (FP) PO STA (07:21)
[2018-03-08] MEDS ORDERED: oxyCODONE HCL 10 MG SUSTAINED ACTING TABLET PO STA (07:21)
[2018-03-08] MEDS ORDERED: DEXAMETHASONE SOD PHOSPHATE/PF 10 MG/ML SDV ONE (08:08)
[2018-03-08] MEDS ORDERED: BUPIVACAINE HCL/PF (5 MG/ML) 30 ML VIAL IJ ONE (08:08)
[2018-03-08] MEDS ORDERED: MIDAZOLAM HCL 2 MG/2 ML SINGLE DOSE VIAL ONE ×3 (08:08→09:40)
[2018-03-08] MEDS ORDERED: ceFAZolin SODIUM 1 GM VIAL ONE (08:30)
[2018-03-08] MEDS ORDERED: LIDOCAINE HCL/PF 2% SDV 5ML VIAL ONE (08:33)
[2018-03-08] MEDS ORDERED: LIDOCAINE HCL 1%, 10 MG/ML (50 mL VIAL) IJ ONE (09:00)
[2018-03-08] MEDS ORDERED: SUCCINYLCHOLINE CHLORIDE 200 MG/10 ML VIAL ONE (09:47)
[2018-03-08] MEDS ORDERED: ONDANSETRON 4 MG/2 ML VIAL IVPUSH PRN (09:55)
[2018-03-08] MEDS ORDERED: LACTATED RINGERS SOLUTION 1,000 ML IV SCH (10:00)
[2018-03-08] MEDS ORDERED: GELATIN SPONGE,ABSORBABLE 1 GM PACKET TP ONE (10:02)
[2018-03-08] MEDS ORDERED: methylPREDNISolone ACET (DEPO) 40 MG/1 ML VIAL IM ONE (10:03)
[2018-03-08] MEDS ORDERED: GUM MASTIC/STORAX/MSAL/ALCOHOL 1 DRP DROPSBTL MC ONE (10:05)
--- NOTE | 2018-03-08 10:21 | OP ---
Operative Note - Note: Operative Date: 03/08/18 Pre-Operative Diagnosis: L4-S1 lumbar stenosis, henriated disc at L5/S1 with radiculopathy Operation: L4-S1 Bilateral laminectomy, L5/S1 discectomy Post-Operative Diagnosis: Same as Pre-op Surgeon: Lake Le [place] Hand: Paulie Mahmood Anesthesiologist/PRODUCT DEVELOPMENT ENGINEER: Justin Pappas Anesthesia: Spinal Specimens Removed: L5/S1 disc Estimated Blood Loss (mls): 20 Fluid Volume Replaced (mls): 800 Operative Report Dictated: Yes
--- NOTE | 2018-03-08 10:22 | SURG ---
Surgery Electron Beam Welding Machine Operator Note Electron Beam Welding Machine Operator: Paulie Mahmood PA-C Date of Service: 03/08/18 Diagnosis: L4-S1 lumbar stenosis with radiculopathy. L5/S1 herniated disc Procedure: L4-S1 bilateral laminectomy. L5/S1 discectomy I was present for the entirety of the operative procedure. For further detail, please refer to operative report. Visit type - Case Type Case Type: Scheduled - New patient This patient is new to me today: Yes Date on this admission: 03/08/18
--- NOTE | 2018-03-08 10:57 | OP ---
DATE OF OPERATION: 03/08/2018 PREOPERATIVE DIAGNOSES: 1. Spinal stenosis, L4-5, L5-S1. 2. Herniated disk. POSTOPERATIVE DIAGNOSES: 1. Spinal stenosis, L4-5, L5-S1. 2. Herniated disk. PROCEDURE PERFORMED: 1. Laminectomy, L4-5, L5-S1. 2. Microdiscectomy. SURGEON: Lake Le MD INSTRUCTIONAL MANAGER: ERROL Nava ESTIMATED BLOOD LOSS: 50 mL INTRAVENOUS FLUIDS: Per Anesthesia. ANESTHESIA: Spinal/TLIP. COMPLICATIONS: None. DISPOSITION: Patient was brought to the PACU in stable condition. INDICATION FOR SURGERY: The patient is a 37-year-old gentleman who has been suffering from pain from his back down his legs. X-rays and MRI were completed which noted that he had spinal stenosis at L4-5 and L5-S1 with a herniated disk at L5-S1. He had gone through an exhaustive course of treatment for this, which included medications, physical therapy as well as injections. Unfortunately, his pain continued to persist despite all this. At this point, risks, benefits, and alternatives were discussed, and the patient consented to surgery. DESCRIPTION OF PROCEDURE: Patient was brought to the operating room by the anesthesia staff. After appropriate patient identification was performed, spinal anesthesia was given along with a TLIP block. Patient was able to position himself prone onto a Jose Miguel frame with all areas of bony prominences well padded at this time. Two needles were placed into his back to fabricio off the L4 to S1 levels. X-ray was taken to confirm this as correct. Gilsum were removed, and 10 mL of lidocaine with epinephrine were injected in his back at this time. His back was prepped and draped in a sterile manner. At this point, a timeout was completed. An incision was made from the top of L4 down to the bottom of S1. Dissection was carried down to the fascia. Fascia was then split at this time, and appropriate retractors were placed in. A spinal needle was placed onto the L5 lamina to fabricio off the L5-S1 level. An x-ray was taken to confirm this as correct. The needle was removed, and the microscope was brought in. The interspinous ligament at L4-5 and L5-S1 was removed. The spinous process of L5 was removed. The lamina at L5 was removed. A complete decompression was performed such that by the end of the procedure the L5 and S1 nerve roots appeared to be well decompressed. The thecal sac was mobilized medially. A disk herniation was noted. It was removed at this time. By the end of the procedure, both the L5 and S1 nerve roots appeared to be well decompressed. All bleeding was well controlled at this time. Steroid was placed over the nerve root. FloSeal was placed over that. The fascia was closed with a No. 1 Vicryl suture. Subcutaneous tissues were closed with 2-0 Vicryl suture. Skin was closed with 3-0 Monocryl suture. Dermabond was applied. Steri-Strips were applied. A sterile dressing was applied. Patient was placed supine on the OR bed and brought to the PACU in stable condition. Jana BROWNING/[id number]
[2018-03-08 12:44] VITALS: TEMP 98
[2018-03-08 12:52] VITALS: BP 125/83; PULSE 96
--- NOTE | 2018-03-09 15:03 | PATH ---
Surgical Pathology Report Patient Name: JAMI GONZALES [facility]. Rec. #: [id number] /Age/Gender: 1980 (Age: 37) / M Account: [id number] Location: [facility] AMBULATORY Taken: 03/08/2018 Received: 03/08/2018 Reported: 03/09/2018 Physicians: Lake Le M.D. Specimen(s) Received L5-S1 DISC Clinical History Spinal stenosis Final Diagnosis L5-S1 DISC, LAMINECTOMY: INTERVERTEBRAL DISC TISSUE AND DENSE FIBROCONNECTIVE TISSUE. Electronically Signed Eusebia Amaya M.D. Gross Description Received in formalin labeled "lumbar disc L5-S1," is a 2.5 x 2.3 x 0.3 cm aggregate of keene fragments of fibrocartilaginous tissue. The specimen is entirely submitted in one cassette. /03/08/2018 saudi/03/08/2018
== END 2018-03-08 12:45 | disposition home or self-care (01) ==
LOC: FASU 06:10
PROVIDERS: ATTEND Orthopaedic Surgery Orthopaedic Surgery of the Spine
PROC: 01NB0ZZ Release Lumbar Nerve, Open Approach (ICD-10-PCS; principal; 2018-03-08 08:15)
DX: M48.061 Spinal stenosis, lumbar region without neurogenic claudication (principal); M48.07 Spinal stenosis, lumbosacral region; M51.26 Other intervertebral disc displacement, lumbar region
CPT/HCPCS: 72100-TC-FY; 76000-TC-FY; 88304-TC; 94760

== ENCOUNTER 2019-07-29 06:34 | Inpatient (IN) | payer OTHER ==
[2019-07-25 17:34] VITALS: BMI 36.8
[2019-07-29] MEDS ORDERED: CEFAZOLIN 2 GM in DEXTROSE 5%-WATER - 100 ML IVPB ONE (06:51)
--- NOTE | 2019-07-29 06:57 | HP ---
History & Physical Update - History History: No Change - Physical Physical: No Change - Assessment Assessment: No Change - Plan Plan: No Change
[2019-07-29] MEDS: GABAPENTIN 300 MG CAPSULE (FP) PO STA ×2 (07:10→07:25)
[2019-07-29] MEDS: oxyCODONE HCL 10 MG SUSTAINED ACTING TABLET PO STA ×2 (07:10→07:25)
[2019-07-29] MEDS ORDERED: PROPOFOL 20 ML ONE ×3 (07:23→08:13)
[2019-07-29] MEDS ORDERED: MIDAZOLAM HCL 2 MG/2 ML SINGLE DOSE VIAL ONE ×4 (07:24→08:10)
[2019-07-29] MEDS ORDERED: BUPIVACAINE HCL/PF 0.5% (5 MG/ML) 30 ML VIAL IJ ONE (07:44)
[2019-07-29] MEDS ORDERED: BUPIVACAINE LIPOSOME/PF (EXPAREL) 266 MG/20 ML VIAL ONE (07:44)
[2019-07-29] MEDS ORDERED: DEXMEDETOMIDINE HCL 200 MCG/2 ML IVPB ONE (08:10)
[2019-07-29] MEDS ORDERED: ePHEDrine SULFATE 50 MG/1 ML AMPULE ONE (08:13)
[2019-07-29] MEDS ORDERED: SUCCINYLCHOLINE CHLORIDE 200 MG/10 ML SYRINGE ONE (08:13)
[2019-07-29] MEDS ORDERED: LACTATED RINGERS SOLUTION 1,000 ML/1,000 ML INFUS.BAG IV SCH (11:00)
[2019-07-29] MEDS ORDERED: oxyCODONE HCL 5 MG TABLET PO PRN ×2 (11:01)
[2019-07-29] MEDS ORDERED: ONDANSETRON 4 MG/2 ML VIAL IVPUSH PRN (11:01)
[2019-07-29] MEDS ORDERED: PROMETHAZINE HCL 25 MG/1 ML VIAL IVPUSH PRN (11:01)
--- NOTE | 2019-07-29 11:06 | OP ---
Operative Note - Note: Operative Date: 07/29/19 Pre-Operative Diagnosis: LBP with LLE radiculopathy, HNP Operation: L5-S1 TLIF, allograft implant, neuromonitoring Post-Operative Diagnosis: Same as Pre-op Surgeon: Lake Le Dental Scheduler: Paulie Mahmood Anesthesiologist/VAN CDL DRIVER: Harshal Herron Anesthesia: Spinal Estimated Blood Loss (mls): 20 Fluid Volume Replaced (mls): 1,000 Operative Report Dictated: Yes
--- NOTE | 2019-07-29 11:08 | SURG ---
Surgery Com Writer Note Com Writer: Paulie Mahmood PA-C Date of Service: 07/29/19 Diagnosis: LBP with LLE radiculopathy, HNP Procedure: Posterior lumbar decompression / fusion / instrumentation / transforaminal lumbar interbody fusion L5-S1 / allograft implant / neuromonitoring I was present for the entirety of the operative procedure. For further detail, please refer to operative report. Visit type - Case Type Case Type: Scheduled - New patient This patient is new to me today: Yes Date on this admission: 07/29/19
[2019-07-29] MEDS ORDERED: diazePAM 2 MG TABLET ONE (12:01)
[2019-07-29] MEDS ORDERED: diazePAM 2 MG TABLET PO ONE (12:10)
--- NOTE | 2019-07-29 13:17 | OP ---
DATE OF OPERATION: 07/29/2019 PREOPERATIVE DIAGNOSES: 1. Spinal stenosis L5-S1. 2. Degenerative disk disease. POSTOPERATIVE DIAGNOSES: 1. Spinal stenosis L5-S1. 2. Degenerative disk disease. PROCEDURE PERFORMED: 1. Transforaminal lumbar interbody fusion, L5-S1. 2. Placement of interbody cage. 3. Placement of instrumentation. 4. Revision laminectomy. SURGEON: Lake Le MD SUBSTATION DESIGNER: ERROL Nava ESTIMATED BLOOD LOSS: 50 mL. IV FLUIDS: Per anesthesia. ANESTHESIA: Spinal/TLIP block. COMPLICATIONS: There were none. DISPOSITION: Patient brought to the PACU in stable condition. INDICATIONS FOR SURGERY: Patient is a 39-year-old gentleman who has been suffering from pain from his back down his legs. X-rays and MRI are completed, which noted that he had a re-herniation at L5-S1. He had previously undergone a laminectomy and had done well from that surgery. Unfortunately, he re-herniated soon after. He had gone through an exhaustive course of treatment for this, which included medications, physical therapy as well as injections. At this point, we had a discussion regarding a revision laminectomy versus a fusion. Risks, benefits, alternatives discussed, and the patient consented to surgery. DESCRIPTION OF PROCEDURE: Patient brought to the operating room by the anesthesia staff. After appropriate patient identification was performed, spinal anesthesia was given. A TLIP block was also given. Patient was able to position himself prone onto the OR bed with all areas and bony prominences well padded at this time. The C-arm was brought in, and the L5 and S1 pedicles were marked off. His back was prepped and draped in a sterile manner. At this point, a time-out was completed. Incisions were made bilaterally over the L5-S1 pedicles. Dissection was carried down to the fascia. Fascia was then split open at this time. Under C-arm guidance, trocars were advanced into the pedicles. A wire was inserted. Through the wire, a tap was performed and screws were inserted. On the left hand side, retractor blades were set up to expose the L5 facet joint. The facet joint was removed. The disk was entered. Using a series of pituitaries, Kerrisons, and curettes, a diskectomy was completed. The endplates were decorticated at this time. Bone graft was placed into the disk space. A size cage filled with bone graft was placed in. Tulip heads were placed on the left hand side. A altagracia was measured and placed in. Caps and compression was applied. On the right hand side, a altagracia was measured and placed in. Caps and compression was applied. All x-ray instrumentation was removed. AP and lateral x-rays confirmed the instrumentation to be in good position. The fascia was closed with a No. 1 Vicryl suture. Subcutaneous tissues were closed with 2-0 Vicryl suture. Skin was closed with 3-0 Monocryl suture. Dermabond was applied. Steri-Strips were applied. A sterile dressing was applied. Patient was placed supine on the OR bed, brought to the PACU in stable condition. Jana BROWNING/[id number]
[2019-07-29] MEDS ORDERED: diazePAM 2 MG TABLET PO PRN (13:30)
[2019-07-29] MEDS ORDERED: METHOCARBAMOL 500 MG TABLET PO SCH (14:00)
[2019-07-29] MEDS ORDERED: GABAPENTIN 300 MG CAPSULE (FP) PO SCH (14:00)
[2019-07-29] MEDS ORDERED: oxyCODONE HCL 5 MG TABLET ONE (14:18)
[2019-07-29] MEDS ORDERED: CEFAZOLIN 1 GM/D5W 1 GM/50 ML BAG ONE (14:59)
[2019-07-29] MEDS ORDERED: CEFAZOLIN 1 GM/D5W 1 GM/50 ML BAG IVPB SCH (15:00)
[2019-07-29 15:41] VITALS: BP 130/75; PULSE 82; TEMP 98.3
== END 2019-07-29 15:43 | disposition home or self-care (01) | DRG 304 ==
LOC: FM/S 06:34
PROVIDERS: ADMIT Orthopaedic Surgery Orthopaedic Surgery of the Spine; ATTEND Orthopaedic Surgery Orthopaedic Surgery of the Spine
PROC: 0ST40ZZ Resection of Lumbosacral Disc, Open Approach (ICD-10-PCS; 2019-07-29)
PROC: 4A11X4G Monitoring of Peripheral Nervous Electrical Activity, Intraoperative, External Approach (ICD-10-PCS; 2019-07-29)
PROC: 0SG30AJ Fusion of Lumbosacral Joint with Interbody Fusion Device, Posterior Approach, Anterior Column, Open Approach (ICD-10-PCS; principal; 2019-07-29 09:16)
DX: M51.17 Intervertebral disc disorders with radiculopathy, lumbosacral region (principal); M48.07 Spinal stenosis, lumbosacral region
CPT/HCPCS: 72100-TC-FY; 76000-TC-FY; 94760